=== PATIENT | female | born 1940 | race African-American/Black ===

== ENCOUNTER 2016-08-20 11:07 | Inpatient (IN) ==
[2016-08-20] MEDS ORDERED: MECLIZINE 25 MG TABLET PO STA (12:06)
[2016-08-20] MEDS ORDERED: SODIUM CHLORIDE 0.9% 500 ML IV STA (12:06)
[2016-08-20] MEDS ORDERED: ONDANSETRON 4 MG/2 ML VIAL IV STA (12:06)
--- NOTE | 2016-08-20 12:15 | Emergency Department Note ---
IJennifer Kasabria, am scribing for, and in the presence of, Ye Robison MD 12:09. Enriqueta Headley Charles R, MD, personally performed the services described in this documentation, ascribed by Ken Rodriguez in my presence, and it is both accurate and complete . Arrival - Arrival Chief Complaint: Dizziness ED Nursing Triage Note: pt got dizzy when she woke up friday morning. was seen at [facility] then for that. pt is not any better and went back to [facility]. Mode of Arrival: Stretcher Limitations: No Limitations Source: Patient Time Seen by Provider: 08/20/16 11:55 - History of Present Illness HPI Narrative: This is a 76 y/o black female presenting to the ED with c/o vertigo and near syncopal episode that onset Friday after waking up. Pt was seen at [facility] for her symptoms, since she has not gotten any better and went back to [facility]. Pt was then transferred here for further evaluation. Upon standing, pt states it felt like her muscles would not move so she sat back down because she did not want to pass out. She denies numbness to face, scalp, fever, chills, nausea, vomiting, diarrhea, diplopia, vision change, dysuria, and tingling. She denies chest pain. Her social history is unremarkable. Her PMHx is consistent with HTN, breast cacner, rheumatoid arthritis, and GERD. Consistency: constant Severity: moderate Allergies/Adverse Reactions: Allergies Allergy/AdvReac Type Severity Reaction Status Date / Time meperidine [From Demerol] Allergy Intermediate Dizziness Verified 11/08/14 09:39 Penicillins Allergy Intermediate Dizziness Verified 11/08/14 09:39 Home Medications: Home Medications Medication Instructions Recorded Confirmed Type Atenolol/Chlorthalidone 1 tablet PO DAILY 11/05/14 08/20/16 History [Atenolol-Chlorthalidone 50-25] Atorvastatin [Lipitor] 80 mg PO BEDTIME tablet 11/07/14 08/20/16 Rx Clopidogrel [Plavix] 75 mg PO DAILY tablet 11/07/14 08/20/16 Rx Acetaminophen Tab [Tylenol Tab] 500 mg PO DAILY 08/20/16 08/20/16 History Azelastine HCl [Azelastine 0.1% 1 spray BOTH NARES BID 08/20/16 08/20/16 History Nasal [place]] Baclofen Tab [Lioresal] 5 mg PO BID 08/20/16 08/20/16 History Calcium Carbonate/Vitamin D3 1 each PO BID 08/20/16 08/20/16 History [Calcium 600-Vit D3 800 Tablet] Cholecalciferol (Vitamin D3) 2,000 unit PO BEDTIME 08/20/16 08/20/16 History [Vitamin D3] Fluticasone 50 Mcg Nasal [place] 1 spray BOTH NARES DAILY 08/20/16 08/20/16 History [Flonase Nasal [place]] Folic Acid 0.8 mg PO DAILY 08/20/16 08/20/16 History Garlic Extract [Garlipure] 600 mg PO DAILY 08/20/16 08/20/16 History Gluc/Sarkis-MSM#1/C/Hussein/Ck/Bor 1 each PO DAILY 08/20/16 08/20/16 History [Osteo Bi-Flex Caplet] Meclizine [Antivert] 25 mg PO Q6H PRN 08/20/16 08/20/16 History Ubidecarenone [Co Q-10] 100 mg PO DAILY 08/20/16 08/20/16 History levETIRAcetam TAB [Keppra Tab] 250 mg PO QAM 08/20/16 08/20/16 History levETIRAcetam TAB [Keppra Tab] 500 mg PO BEDTIME 08/20/16 08/20/16 History Review of System - Review of System 12 point system: reviewed and no additional remarkable complaints except as stated - Review of System Constitutional: Present: weakness. Absent: chills, fever Eyes: Absent: vision change Head/Ears/Nose/Throat: Absent: nasal drainage Respiratory: Absent: cough, wheezing Cardiovascular: Absent: chest pain, dyspnea on exertion, syncope (near syncopal ) Gastrointestinal: Absent: abdominal pain, nausea, vomiting, diarrhea, hematochezia Genitourinary female: Absent: dysuria Musculoskeletal: Absent: arm pain, back pain, leg pain, neck pain Skin: Absent: rash Neurological: Present: vertigo. Absent: headache, weakness, confusion Psychiatric: Absent: anxiety Endocrine: Absent: fatigue Hematological/Lymphatic: Absent: easy bleeding Allergic/Immunologic: Absent: facial swelling Medical,Surgical,& Family Hx - Medical History Cardio: History of: Hypertension Rheumatology: History of;: Rheumatoid Arthritis Gastrointestinal: History of: GERD Reproductive: History of: Breast Cancer - Surgical History Reproductive Surgeries: Surgical HX of;: Breast Surgery (Right & Left mastectomy ) - Family History Family History: Reports;: Family Cancer (sisters had breast ca and ovarion, brother prostate, mother colon), Family Diabetes (sister with dm), Family Stroke (sister with cva) Comment Only: Family Hypertension (sisters with htn) - Social History Smoking Status: Never smoker Frequency of Alcohol Use: None Type of Drug Use: None Exam Vital Signs: Vital Signs Temperature 97.2 F L 08/20/16 11:14 Pulse Rate 58 L 08/20/16 11:14 Respiratory Rate 18 08/20/16 11:14 Blood Pressure 170/71 08/20/16 11:14 O2 Sat by Pulse Oximetry 96 08/20/16 11:14 - General General appearance: alert, in no apparent distress, other (near syncopal; weak upon standing ) - Head Head exam: Present: atraumatic, normocephalic, normal inspection - Eye Eye exam: Present: PERRL, EOMI, nystagmus (when standing ) - ENT ENT exam: Present: normal exam, normal oropharynx, mucous membranes moist, TM's normal bilaterally, normal external ear exam - Neck Neck exam: Present: normal inspection, full ROM, trachea midline. Absent: tenderness - Chest Chest inspection: Present: normal inspection, symmetric chest wall rise. Absent : tenderness - Respiratory Respiratory exam: Present: normal lung sounds bilaterally - Cardiovascular Cardiovascular exam: Present: normal rhythm, bradycardia, normal heart sounds. Absent: regular rate - Abdominal Exam Abdominal exam: Present: soft, normal bowel sounds. Absent: distention, tenderness - Extremities Exam Extremities exam: Present: normal inspection, full ROM, normal capillary refill. Absent: tenderness, pedal edema, calf tenderness - Back Exam Back exam: Present: normal inspection, full ROM. Absent: tenderness - Neurological Exam Neurological exam: Present: alert, oriented X3, CN II-XII intact, normal gait, reflexes normal - Psychiatric Psychiatric exam: Present: normal affect, normal mood - Skin Skin exam: Present: warm, dry, intact, normal color. Absent: rash, diaphoresis Course - Consultations Consultation #1: Hospitalist will admit patient Time: 12:10 Results - Labs Lab Results: I have reviewed the patients labs Labs: All results reviewed from previous facility Disposition Clinical Impression: Transient cerebral ischemia, Orthostatic syncope, Bradycardia, Benign paroxysmal positional vertigo, Syncope and collapse Case discussed with: patient Disposition: Still a Patient Condition: Stable Time of Disposition: 12:14
--- NOTE | 2016-08-20 12:32 | EKG Report ---
Stationary ECG Study [facility] ER Test Date: 08/20/2016 12:31:25 PM Pat Name: LISSA HERMAN Department: Room: Gender: F Data Migration Lead: : 1940 Requested by: Ye Liz Order Number: [id number] Reading MD: KAITY PARKINSON Intervals [place] Rate: 58 P: 56 ND: 186 QRS: 93 QRSD: 97 T: 2 QT: 438 QTc: 436 Interpretive Statements SINUS RHYTHM WITH OCCASIONAL VENTRICULAR PREMATURE COMPLEXES NONSPECIFIC T-WAVE ABNORMALITY RIGHT AXIS DEVIATION Electronically Signed On 08-20-16 18:34:26 CDT by KAITY PARKINSON [email or web address]
[2016-08-20] MEDS ORDERED: MECLIZINE 25 MG TABLET ONE (12:42)
[2016-08-20] MEDS ORDERED: ONDANSETRON 4 MG/2 ML VIAL ONE (12:42)
[2016-08-20 13:14] LABS: Basophils % 0.8 % (0.0-0.8); Eosinophils % 1.3 % (0.00-10.9); Hematocrit 34.4 VOL% (35.7-47.0); Hemoglobin 11.2 GM/DL (12.0-16.0); Immature Granulocytes % 0.4 %; Immature Granulocytes Absolute 0.01 #; Lymphocytes # 0.9 10*3/uL (1.4-4.0); Lymphocytes % 37.3 % (21.3-54.2); Mean Corpuscular HGB Conc 32.6 GM/DL (32-36); Mean Corpuscular Hemoglobin 27 PG (27-34); Mean Corpuscular Volume 83.5 FL (87-102); Mean Platelet Volume 10.7 FL (9.6-12.0); Monocytes # 0.2 10*3/uL (0.11-0.8); Monocytes % 6.8 % (1.7-12.7); Neutrophils # 1.3 10*3/uL (1.4-7.4); Neutrophils % 53.4 % (38.7-73.9); Platelet Count 128 T/CUMM (130-400); Red Blood Count 4.12 MC/CUMM (3.8-5.5); Red Cell Distribution Width 13.9 % (9.3-17.3); White Blood Count 2.4 T/CUMM (4-12)
[2016-08-20 13:40] LABS: Albumin 3.9 G/DL (3.4-5.0); Bilirubin,Total 0.6 MG/DL (0.2-1.0); Calcium 9.8 MG/DL (8.5-10.1); Free T4 (Free Thyroxine) 1.17 NG/DL (0.76-1.46); Magnesium 2.1 MG/DL (1.8-2.4); Osmolality,Calculated 290.6 MOS/KG (273-304); Potassium 3.5 MMOL/L (3.5-5.1); Thyroid Stimulating Hormone 0.838 uIU/ml (0.358-3.74); Total Protein 6.5 G/DL (6.4-8.3); Troponin I Only 0.018 NG/ML (0.00-0.045)
[2016-08-20] MEDS ORDERED: ACETAMINOPHEN 325 MG TABLET PO PRN (14:18)
[2016-08-20] MEDS ORDERED: ONDANSETRON 4 MG/2 ML VIAL IV PRN (14:18)
--- NOTE | 2016-08-20 14:26 | Hospitalist History & Physical ---
Assessment and Plan (1) Leukopenia Status: Acute Assessment and plan: WBC 2.4 at admission, this is likely secondary to her rheumatoid arthritis medication regimen. Will will monitor closely. Current Visit: Yes (2) Benign paroxysmal positional vertigo Status: Acute Assessment and plan: We will consult neurology and ENT to evaluate. Current Visit: Yes (3) Bradycardia Status: Acute Assessment and plan: We will review all medications to determine if this may be an attributing factor and consult cardiology to evaluate. Current Visit: Yes History of Present Illness Chief complaint: "dizziness" History of present illness: This is a very pleasant 76 year old female that presented to the ED at [facility] as a lateral transfer from [facility] for evaluation of vertigo and near syncope. The patient has a rather extensive medical history significant for hypertension, rheumatoid arthritis, breast cancer, seizure disorder, cerebral vascular accident. The patient reported the onset of symptoms on yesterday upon awakening. The patient reported "feeling like passing out when standing" and resorted to wearing adult briefs for toileting so that she would not have to stand. She presented to the ED at [facility], where she was evaluated and subsequently released. She reports that her symptoms have failed to improve; which prompted her to return to the ED there this morning. She was evaluated and transferred to [facility] for further evaluation. Labs were obtained at the time of presentation which revealed leukopenia with a white blood cell count at 2.4, sodium at 146, chloride at 108, BUN/creatinine at 19/1.30. Her BNP was noted at 368. Chest radiograph was obtained and was unremarkable. CT Head was absent of acute intracranial process or mass midline shift. After brief discussion with Dr. Robison and Dr. Grier, the patient will admitted to the hospitalist service for continuation of care. Home Medications Medication Instructions Recorded Confirmed Type Atenolol/Chlorthalidone 1 tablet PO DAILY 11/05/14 08/20/16 History [Atenolol-Chlorthalidone 50-25] Atorvastatin [Lipitor] 80 mg PO BEDTIME tablet 11/07/14 08/20/16 Rx Clopidogrel [Plavix] 75 mg PO DAILY tablet 11/07/14 08/20/16 Rx Acetaminophen Tab [Tylenol Tab] 500 mg PO DAILY 08/20/16 08/20/16 History Azelastine HCl [Azelastine 0.1% 1 spray BOTH NARES BID 08/20/16 08/20/16 History Nasal [place]] Baclofen Tab [Lioresal] 5 mg PO BID 08/20/16 08/20/16 History Calcium Carbonate/Vitamin D3 1 each PO BID 08/20/16 08/20/16 History [Calcium 600-Vit D3 800 Tablet] Cholecalciferol (Vitamin D3) 2,000 unit PO BEDTIME 08/20/16 08/20/16 History [Vitamin D3] Fluticasone 50 Mcg Nasal [place] 1 spray BOTH NARES DAILY 08/20/16 08/20/16 History [Flonase Nasal [place]] Folic Acid 0.8 mg PO DAILY 08/20/16 08/20/16 History Garlic Extract [Garlipure] 600 mg PO DAILY 08/20/16 08/20/16 History Gluc/Sarkis-MSM#1/C/Hussein/Ck/Bor 1 each PO DAILY 08/20/16 08/20/16 History [Osteo Bi-Flex Caplet] Meclizine [Antivert] 25 mg PO Q6H PRN 08/20/16 08/20/16 History Ubidecarenone [Co Q-10] 100 mg PO DAILY 08/20/16 08/20/16 History levETIRAcetam TAB [Keppra Tab] 250 mg PO QAM 08/20/16 08/20/16 History levETIRAcetam TAB [Keppra Tab] 500 mg PO BEDTIME 08/20/16 08/20/16 History Allergies Allergy/AdvReac Type Severity Reaction Status Date / Time meperidine [From Demerol] Allergy Intermediate Dizziness Verified 11/08/14 09:39 Penicillins Allergy Intermediate Dizziness Verified 11/08/14 09:39 Medical,Surgical,& Family Hx - Medical History Cardio: History of: Hypertension Neurology: History of: Cerebrovascular Accident (right side weakness) Endocrine: History of: Dyslipidemia Rheumatology: History of;: Rheumatoid Arthritis Gastrointestinal: History of: GERD Reproductive: History of: Breast Cancer - Surgical History Reproductive Surgeries: Surgical HX of;: Breast Surgery (Right & Left mastectomy ) - Family History Family History: Reports;: Family Cancer (sisters had breast ca and ovarion, brother prostate, mother colon), Family Diabetes (sister with dm), Family Stroke (sister with cva) Comment Only: Family Hypertension (sisters with htn) - Social History Smoking Status: Never smoker Frequency of Alcohol Use: None Type of Drug Use: None 12 point system: reviewed and no additional remarkable complaints except as stated Exam - Constitutional General appearance: normal weight, no acute distress - Head Head exam: Present: normal inspection, normocephalic, atraumatic - Eye Eye exam: Present: EOMI. Absent: conjunctival injection, nystagmus Pupils: Present: LAURI, normal accommodation - ENT ENT exam: Present: normal exam, normal external ear exam, normal oropharynx - Neck Neck exam: Present: normal inspection. Absent: lymphadenopathy, meningismus, tenderness, thyromegaly - Respiratory Respiratory exam: Present: clear to auscultation bilaterally. Absent: rales, rhonchi, stridor, wheezes - Cardiovascular Cardiovascular exam: Present: bradycardia. Absent: carotid bruit, diastolic murmur, gallop, JVD, rubs, systolic murmur - GI/Abdominal GI/Abdominal exam: Present: soft - Extremities Exam Extremities exam: Present: normal inspection, normal capillary refill, full ROM. Absent: edema - Back Exam Back exam: Present: normal inspection - Neurological Exam Neurological exam: Present: alert, oriented X3, CN II-XII intact - Psychiatric Psychiatric exam: Present: normal affect, normal mood - Skin Skin exam: Present: normal color, warm, dry Results - Labs CBC & BMP: 08/20/16 12:55 08/20/16 12:55 Lab Results: I have reviewed the past 24 hour labs Quality Measures - VTE Contraindication to Pharmacological VTE Prophylaxis: Thrombocytopenia
--- NOTE | 2016-08-20 14:52 | Ultrasound Report ---
Exam: Carotid ultrasound Date: 08/20/2016 Comparison: 11/06/2014 Technique: Duplex scans of the carotid and vertebral arteries using B-mode/Estrada scale imaging and Doppler spectral analysis and color flow. Reason: Syncope Findings: The right ICA measures 5.4 mm in diameter and the left ICA measures 6.8 mm in diameter. Color-flow documented in the visualized arteries. The peak systolic velocities are as follows: Right CCA: 45.5 cm/s Right ICA: 76.7 cm/s Right ECA: 49.4 cm/s Left CCA: 53.3 cm/s Left ICA: 76.7 cm/s Left ECA: 61.1 cm/s The peak systolic ICA/CCA velocity ratios are as follows: 1.7 on the right and 1.4 on the left. Antegrade flow is present in both vertebral arteries. Impression:[0-15% stenosis in both internal carotid arteries with no significant plaque formation. Antegrade flow in both vertebral arteries.] The Society of Radiologists in Ultrasound consensus conference criteria was used. The Ultrasound images were captured and stored. PROCEDURE INTERPRETED AT [facility] DEPARTMENT OF RADIOLOGY Final Report Signed by: Dr. Pam Becker
[2016-08-20 15:01] LABS: Apearance,Urine CLEAR (Clear); Bilirubin,Urine Negative (Negative); Blood, Urine Negative (Negative); Glucose,Urine (UA) Negative (Negative); Ketones,Urine Negative (Negative); Nitrite,Urine Negative (Negative); Protein,Urine Negative; Urine Color Colorless (Yellow); Urine Specific Gravity 1.004 (1.001-1.035); Urine Urobilinogen < 2.0 EU/DL (0.2-1.0); WBC,Urine 1 /HPF (0-6)
[2016-08-20] MEDS ORDERED: MECLIZINE 25 MG TABLET PO PRN (15:56)
[2016-08-20] MEDS ORDERED: methylPREDNISolone 4 MG TABLET PO SCH (16:00)
[2016-08-20] MEDS ORDERED: DEXAMETHASONE 4 MG/1 ML VIAL MISC INJ ONE (17:00)
[2016-08-20] MEDS ORDERED: LIDOCAINE 2%/EPI 20 ML VIAL MISC INJ ONE (17:00)
--- NOTE | 2016-08-20 17:18 | Consultation ---
Assessment and Plan - Time spent with patient Time spent with patient: Greater than 30 minutes (1) Otalgia, left ear Status: Acute Assessment and plan: I feel her ear pain fullness and variety of neurologic pain of the left ear is secondary to jaw joint pathology her otologic exam is grossly normal. I recommend a temporomandibular joint injection that would be both diagnostic and therapeutic. She agrees to this and it was performed at bedside with a total of 4 cc of 1% lidocaine with 1-100,000 epinephrine and 1 cc of 4 mg of Decadron. She tolerated the procedure well. I will follow up with this patient will see if we obtain the desired benefit from the injection. Thank you very much for this consult I will follow-up on this patient. Current Visit: Yes (2) Disorder of left temporomandibular joint Status: Acute Current Visit: Yes History of Present Illness - Data of Consult Patient: new to practice Consult date: 08/20/16 - Consult Narrative Reason for consult: Left otalgia History of present illness: Ms. Crow is a 76 year old female exquisite left otalgia with fullness and irritation ENT is consulted to evaluate and treat. This is been going on for several weeks and has increased in severity and frequency the pain is sharp with a constant dull ache during exacerbations she rates it at a 10 out of 10 constant 5-7 out of 10. CC: Yulia Grier MD - Home Medications and Allergies Home Medications: Home Medications Medication Instructions Recorded Confirmed Type Atenolol/Chlorthalidone 1 tablet PO DAILY 11/05/14 08/20/16 History [Atenolol-Chlorthalidone 50-25] Atorvastatin [Lipitor] 80 mg PO BEDTIME tablet 11/07/14 08/20/16 Rx Clopidogrel [Plavix] 75 mg PO DAILY tablet 11/07/14 08/20/16 Rx Acetaminophen Tab [Tylenol Tab] 500 mg PO DAILY 08/20/16 08/20/16 History Azelastine HCl [Azelastine 0.1% 1 spray BOTH NARES BID 08/20/16 08/20/16 History Nasal [place]] Baclofen Tab [Lioresal] 5 mg PO BID 08/20/16 08/20/16 History Calcium Carbonate/Vitamin D3 1 each PO BID 08/20/16 08/20/16 History [Calcium 600-Vit D3 800 Tablet] Cholecalciferol (Vitamin D3) 2,000 unit PO BEDTIME 08/20/16 08/20/16 History [Vitamin D3] Fluticasone 50 Mcg Nasal [place] 1 spray BOTH NARES DAILY 08/20/16 08/20/16 History [Flonase Nasal [place]] Folic Acid 800 mcg PO DAILY 08/20/16 08/20/16 History Garlic Extract [Garlipure] 600 mg PO DAILY 08/20/16 08/20/16 History Gluc/Sarkis-MSM#1/C/Hussein/Ck/Bor 2 each PO DAILY 08/20/16 08/20/16 History [Osteo Bi-Flex Caplet] Meclizine [Antivert] 25 mg PO Q6H PRN 08/20/16 08/20/16 History Ubidecarenone [Co Q-10] 100 mg PO DAILY 08/20/16 08/20/16 History levETIRAcetam TAB [Keppra Tab] 500 mg PO BID 08/20/16 08/20/16 History Allergies/Adverse Reactions: Allergies Allergy/AdvReac Type Severity Reaction Status Date / Time meperidine [From Demerol] Allergy Intermediate Dizziness Verified 11/08/14 09:39 Penicillins Allergy Intermediate Dizziness Verified 11/08/14 09:39 12 point system: reviewed and no additional remarkable complaints except as stated Medical,Surgical,& Family Hx - Medical History Cardio: History of: Hypertension Neurology: History of: Cerebrovascular Accident (right side weakness) Endocrine: History of: Dyslipidemia Rheumatology: History of;: Rheumatoid Arthritis Renal: History of: Renal Problems (incontinent post stroke) Genitourinary: History of: Recurring Urinary Tract Infections Gastrointestinal: History of: GERD Reproductive: History of: Breast Cancer - Surgical History Reproductive Surgeries: Surgical HX of;: Breast Surgery (Right & Left mastectomy ) - Family History Family History: Reports;: Family Cancer (sisters had breast ca and ovarion, brother prostate, mother colon), Family Diabetes (sister with dm), Family Stroke (sister with cva) Comment Only: Family Hypertension (sisters with htn) - Social History Smoking Status: Never smoker Frequency of Alcohol Use: None Type of Drug Use: None Exam - Constitutional Vitals: Period Temp Pulse Resp BP Sys/Dixon Pulse Ox Last 24 Hr 97.7 F 46-61 18-18 154-175/65-75 100-100 General appearance: normal weight, no acute distress - Head Head exam: Present: normal inspection, normocephalic - Eye Eye exam: Present: EOMI Pupils: Present: LAURI - ENT ENT exam: Present: normal exam, normal external ear exam, normal oropharynx, other (Left TMJ tenderness clicking and popping with no locking on exam consistent with TMJ pain) - Expanded ENT Exam Ear exam: Present: TM's normal bilaterally Mouth exam: Present: normal external inspection, moist Teeth exam: Present: other (No TMJ exam above) Throat exam: Present: normal inspection - Neck Neck exam: Present: normal inspection - Respiratory Respiratory exam: Present: other (No shortness of breath or tachypnea) - GI/Abdominal GI/Abdominal exam: Present: soft (No gross organomegaly) - Extremities Exam Extremities exam: Present: normal inspection, normal capillary refill - Neurological Exam Neurological exam: Present: alert, oriented X3, CN II-XII intact - Psychiatric Psychiatric exam: Present: normal affect, normal mood - Skin Skin exam: Present: normal color, warm Results - Labs CBC & BMP: 08/20/16 12:55 08/20/16 12:55 Lab Results: I have reviewed the past 24 hour labs Quality Measures - VTE Contraindication to Pharmacological VTE Prophylaxis: Thrombocytopenia
[2016-08-20] MEDS: methylPREDNISolone 4 MG TABLET PO SCH ×2 (18:56→21:32)
[2016-08-20] MEDS: CHOLECALCIFEROL 1,000 UNIT TABLET PO SCH (21:32)
[2016-08-20] MEDS: CALCIUM (CARBONATE)/VITAMIN D 600 MG-400 UNIT TABLET PO SCH (21:33)
[2016-08-20] MEDS: ATORVASTATIN 80 MG TABLET PO SCH (21:33)
[2016-08-20] MEDS: AZELASTINE NASAL 137 MCG/SPRAY 30 ML BOTTLE BOTH NARES SCH (21:33)
[2016-08-20] MEDS: levETIRAcetam 500 MG TABLET PO SCH (21:33)
[2016-08-21 06:02] LABS: Hematocrit 34.8 VOL% (35.7-47.0); Hemoglobin 11.7 GM/DL (12.0-16.0); Immature Granulocytes % 0.3 %; Immature Granulocytes Absolute 0.01 #; Lymphocytes # 0.7 10*3/uL (1.4-4.0); Lymphocytes % 20.3 % (21.3-54.2); Mean Corpuscular HGB Conc 33.6 GM/DL (32-36); Mean Corpuscular Hemoglobin 28 PG (27-34); Mean Corpuscular Volume 82.9 FL (87-102); Mean Platelet Volume 10.7 FL (9.6-12.0); Monocytes # 0.1 10*3/uL (0.11-0.8); Monocytes % 2.5 % (1.7-12.7); Neutrophils # 2.5 10*3/uL (1.4-7.4); Neutrophils % 76.9 % (38.7-73.9); Platelet Count 126 T/CUMM (130-400); Red Cell Distribution Width 13.7 % (9.3-17.3); White Blood Count 3.2 T/CUMM (4-12)
[2016-08-21 06:35] LABS: Calcium 9.7 MG/DL (8.5-10.1); Osmolality,Calculated 293.6 MOS/KG (273-304); Potassium 3.9 MMOL/L (3.5-5.1)
[2016-08-21] MEDS ORDERED: GARLIC EXTRACT PO SCH (09:00)
[2016-08-21] MEDS: AZELASTINE NASAL 137 MCG/SPRAY 30 ML BOTTLE BOTH NARES SCH ×2 (09:59→21:35)
[2016-08-21] MEDS: CALCIUM (CARBONATE)/VITAMIN D 600 MG-400 UNIT TABLET PO SCH ×2 (10:00→21:32)
[2016-08-21] MEDS: COENZYME Q10 100 MG CAPSULE PO SCH (10:00)
[2016-08-21] MEDS: PANTOPRAZOLE 40 MG TABLET PO SCH (10:00)
[2016-08-21] MEDS: CLOPIDOGREL 75 MG TABLET PO SCH (10:00)
[2016-08-21] MEDS: FOLIC ACID 0.4 MG TABLET PO SCH (10:00)
[2016-08-21] MEDS: ACETAMINOPHEN 500 MG TABLET PO SCH (10:00)
[2016-08-21] MEDS: FLUTICASONE 50 MCG NASAL SPRAY 16 GM BOTTLE BOTH NARES SCH (10:00)
[2016-08-21] MEDS: GLUCOSAMINE 500 MG TABLET PO SCH (10:04)
[2016-08-21] MEDS: levETIRAcetam 250 MG TABLET PO SCH (10:04)
[2016-08-21] MEDS: methylPREDNISolone 4 MG TABLET PO SCH ×4 (10:04→21:32)
--- NOTE | 2016-08-21 15:16 | Hospitalist Progress Note ---
Assessment and Plan (1) Vertigo Status: Acute Assessment and plan: 1)vertigo- started after her seizure, improved with PT maneuvers. refer to TMR. she was not orthostatic on checks here. 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 Dr Prater to see. on Plavix, lipitor. BP ok, antiHTN meds held for now. 3)left ear pain/ear pounding- resolved after injection of TMJ but reports sound is muffled, still stuffy on that side of her head. 4)dispo- refer to TMR Current Visit: Yes (2) Disorder of left temporomandibular joint Status: Acute Current Visit: Yes Hospitalist: Subjective Interval history: Mrs Crow is feeling better today. She says the left ear pain is improved after injection yesterday. Also she has been up with help and her vertigo is better. She is able to sit up for meals and walk to bathroom today. She is on medrol dose pack. She is interested in going to [facility] because she has been unsteady on her feet and had stroke November of 2014. She was not orthostatic. Exam - Constitutional Vitals: Period Temp Pulse Resp BP Sys/Dixon Pulse Ox Last 24 Hr 96.3 F-98.2 F 42-61 16-18 108-178/50-75 92-100 General appearance: normal weight, no acute distress - Eye Eye exam: Present: EOMI. Absent: scleral icterus - Expanded ENT Exam Mouth exam: Present: normal external inspection, moist Teeth exam: Present: other (No TMJ exam above) Throat exam: Present: normal inspection - Respiratory Respiratory exam: Present: clear to auscultation bilaterally - Cardiovascular Cardiovascular exam: Present: regular rate and rhythm - GI/Abdominal GI/Abdominal exam: Present: normal bowel sounds, soft. Absent: tenderness - Extremities Exam Extremities exam: Absent: edema - Neurological Exam Neurological exam: Present: alert, oriented X3, CN II-XII intact, motor sensory deficit (right side weakness) - Skin Skin exam: Present: warm, dry Results - Labs CBC & BMP: 08/21/16 05:41 08/21/16 05:41 Quality Measures - VTE Contraindication to Pharmacological VTE Prophylaxis: Thrombocytopenia
--- NOTE | 2016-08-21 17:06 | Neurology Consult Note ---
History of Present Illness History of present illness: She had a history of stroke in november 2014, then seizure in june 2016.She was started on new medicine which she tolerated ok, dose decreased about 6 weeks ago. 2 weeks ago she started having ear pain, tinnitus, and congestion in her left sinus, but not the right. Since that time those symptoms have persisted though Dr Fontaine added a nasal steroid. Then yesterday morning she woke up fine, was in the kitchen gettign juice to take her potassium with when suddenly the room was spinning around her. She had to sit down and call her sister. She was diagnosed with vertigo in outside ER and has taken meclizine twice without much improvement. This morning she was able to get up and get ready for the day, but the more she did the more dizzy she got. She also saw spots inaddition to the room spinning. She again had to sit down. In outside ER she had bradycardia (in the 40s by verbal report) and orthostatic blood pressure. Here she wasn't able to stand to have her blood pressure cehcked. She was transferred here for further evaluation. Dr. Baxter gave her an injection in the left ear which has helped her significantly. She is quite weak overall good. Required mod assist to walk Home Medications Medication Instructions Recorded Confirmed Type Atenolol/Chlorthalidone 1 tablet PO DAILY 11/05/14 08/20/16 History [Atenolol-Chlorthalidone 50-25] Atorvastatin [Lipitor] 80 mg PO BEDTIME tablet 11/07/14 08/20/16 Rx Clopidogrel [Plavix] 75 mg PO DAILY tablet 11/07/14 08/20/16 Rx Acetaminophen Tab [Tylenol Tab] 500 mg PO DAILY 08/20/16 08/20/16 History Azelastine HCl [Azelastine 0.1% 1 spray BOTH NARES BID 08/20/16 08/20/16 History Nasal [place]] Baclofen Tab [Lioresal] 5 mg PO BID 08/20/16 08/20/16 History Calcium Carbonate/Vitamin D3 1 each PO BID 08/20/16 08/20/16 History [Calcium 600-Vit D3 800 Tablet] Cholecalciferol (Vitamin D3) 2,000 unit PO BEDTIME 08/20/16 08/20/16 History [Vitamin D3] Fluticasone 50 Mcg Nasal [place] 1 spray BOTH NARES DAILY 08/20/16 08/20/16 History [Flonase Nasal [place]] Folic Acid 800 mcg PO DAILY 08/20/16 08/20/16 History Garlic Extract [Garlipure] 600 mg PO DAILY 08/20/16 08/20/16 History Gluc/Sarkis-MSM#1/C/Hussein/Ck/Bor 2 each PO DAILY 08/20/16 08/20/16 History [Osteo Bi-Flex Caplet] Meclizine [Antivert] 25 mg PO Q6H PRN 08/20/16 08/20/16 History Ubidecarenone [Co Q-10] 100 mg PO DAILY 08/20/16 08/20/16 History levETIRAcetam TAB [Keppra Tab] 500 mg PO BID 08/20/16 08/20/16 History Allergies Allergy/AdvReac Type Severity Reaction Status Date / Time meperidine [From Demerol] Allergy Intermediate Dizziness Verified 11/08/14 09:39 Penicillins Allergy Intermediate Dizziness Verified 11/08/14 09:39 12 point system: reviewed and no additional remarkable complaints except as stated Medical,Surgical,& Family Hx - Medical History Cardio: History of: Hypertension Neurology: History of: Cerebrovascular Accident (right side weakness) Endocrine: History of: Dyslipidemia Rheumatology: History of;: Rheumatoid Arthritis Renal: History of: Renal Problems (incontinent post stroke) Genitourinary: History of: Recurring Urinary Tract Infections Gastrointestinal: History of: GERD Reproductive: History of: Breast Cancer - Surgical History Reproductive Surgeries: Surgical HX of;: Breast Surgery (Right & Left mastectomy ) - Family History Family History: Reports;: Family Cancer (sisters had breast ca and ovarion, brother prostate, mother colon), Family Diabetes (sister with dm), Family Stroke (sister with cva) Comment Only: Family Hypertension (sisters with htn) - Social History Smoking Status: Never smoker Frequency of Alcohol Use: None Type of Drug Use: None Exam - Constitutional Vitals: Period Temp Pulse Resp BP Sys/Dixon Pulse Ox Last 24 Hr 96.3 F-98.2 F 42-49 16-18 108-131/50-60 92-96 Exam: GENERAL: Patient is in no acute distress. NECK: Neck is supple. There is no JVD. No carotid bruits present. No thyroid masses. CVS: First and second heart sounds are normal. There is no S3 present. Regular rate and rhythm. RESPIRATORY: Lungs are clear to auscultation without any rales or rhonchi. ABDOMEN: Soft and non-tender. Bowel sounds are present. There is no hepatosplenomegaly. EXT: There is no palpable edema. Peripheral pulses are present. Skin: No rashes Central Nervous system: General: Alert, awake and Oriented x 3 Speech: Fluent Comprehension: Intact and normal Facial expressions: Normal Cranial Nerves: CN1/Olfactory: Normal CN II/ Optic: Normal, Visual Rodriguez unreliable CN III, and : LAURI & EOMI CN V: Normal & intact CN VII: face is symmetric CNVIII: Normal CN XI/X/XI/XII: Intact and Normal Motor: Bulk and Tone is normal. Strength in the right 3-4/5 Strength in the left 3-4/5 Sensory: Grossly intact for all the modalities of PP, LT and temp sense Reflexes: 1+ and symmetrical Cerebellar function: Normal finger to nose and heel to nunez testing. Toes: Equivocal Gait: Not tested at this Results - Labs CBC & BMP: 08/21/16 05:41 08/21/16 05:41 Assessment and Plan (1) Otalgia, left ear Status: Acute Assessment and plan: Agree with current ENT evaluation and management. Current Visit: Yes (2) History of CVA (cerebrovascular accident) Status: Acute Assessment and plan: Continue Plavix a day Agree with rehab/swing bed placement if insurance allows. Current Visit: Yes (3) History of seizure Status: Acute Assessment and plan: Continue Keppra for now Thank you for the consult Current Visit: Yes
--- NOTE | 2016-08-21 17:59 | ECHO Report ---
Rosalinda Crow Exam Date: 08/21/2016 09:33 Referring Physician: Technologist: Anne Marie Souza Age: 76 Ht (in): 66 Wt (lb): 174 Gender: F Exam Location: [facility] Echo Indications: BP: 108 / 51 HR: 58 Rhythm: Sinus Technical Quality: Fair IMPRESSIONS Mildly increased left ventricular cavity size. Mild left ventricular hypertrophy. Left ventricular ejection fraction is estimated at 55 %. The right ventricle is normal in size and function. Moderately increased right atrial size. Moderately increased left atrial size. Mild mitral annular calcification. Morphologically normal mitral valve. Mild-moderate mitral valve regurgitation. Morphologically normal aortic valve without significant sclerosis or stenosis. There is no aortic regurgitation. Morphologically normal tricuspid valve. Trace to mild tricuspid valve regurgitation. Tricuspid regurgitation velocities suggest a PAP of 52 mmHg. Morphologically normal pulmonic valve without significant stenosis. There is no pulmonic regurgitation. Normal pericardium without effusion. Normal ascending aorta dimension. MEASUREMENTS (Male / Female) Normal Values 2D ECHO LV Diastolic Diameter PLAX 5.9 cm 4.2 - 5.9 / 3.9 - 5.3 cm LV Systolic Diameter PLAX 4.7 cm LV Fractional Shortening PLAX 20.1 % IVS Diastolic Thickness 1.1 cm 0.6 - 1.0 / 0.6 - 0.9 cm LVPW Diastolic Thickness 1.1 cm 0.6 - 1.0 / 0.6 - 0.9 cm RV Internal Dim ED PLAX 3.4 cm Aortic Root Diameter 3.1 cm LA Systolic Diameter LX 4.4 cm 3.0 - 4.0 / 2.7 - 3.8 cm DOPPLER TR Peak Velocity 324.0 cm/s TR Peak Gradient 42.0 mmHg FINDINGS Left Ventricle Mildly increased left ventricular cavity size. Mild left ventricular hypertrophy. Left ventricular ejection fraction is estimated at 55 %. Right Ventricle The right ventricle is normal in size and function. Right Atrium Moderately increased right atrial size. Left Atrium Moderately increased left atrial size. Mitral Valve Mild mitral annular calcification. Morphologically normal mitral valve. Mild-moderate mitral valve regurgitation. Aortic Valve Morphologically normal aortic valve without significant sclerosis or stenosis. There is no aortic regurgitation. Tricuspid Valve Morphologically normal tricuspid valve. Trace to mild tricuspid valve regurgitation. Tricuspid regurgitation velocities suggest a PAP of 52 mmHg. Pulmonic Valve Morphologically normal pulmonic valve without significant stenosis. There is no pulmonic regurgitation. Pericardium Normal pericardium without effusion. Aorta Normal ascending aorta dimension. Jb Zhou MD (Electronically Signed) Final Date: 21 Aug 2016 17:58
[2016-08-21] MEDS: ATORVASTATIN 80 MG TABLET PO SCH (21:32)
[2016-08-21] MEDS: CHOLECALCIFEROL 1,000 UNIT TABLET PO SCH (21:32)
[2016-08-21] MEDS: levETIRAcetam 500 MG TABLET PO SCH (21:33)
--- NOTE | 2016-08-22 08:53 | Hospitalist Progress Note ---
Assessment and Plan - Time spent with patient Time spent with patient: Less than 30 minutes (1) Otalgia, left ear Status: Acute Assessment and plan: 76-year-old -[place] female with history of CVA and seizures admitted by hospitalist 08/20/2016 with vertigo. [facility] rehab has denied patient due to her insurance. 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 If no swing bed will take her she may need to go home and continue her home health PT. Dr. Grier will see and examine patient and further recommendations to follow Vertigo--this is improved with PT maneuvers and temporomandibular injection by Dr. Baxter Old stroke--no signs of new stroke. Dr. Prater has seen and examined patient he wants to continue Plavix, Lipitor, and Keppra. No new changes at this time. Left ear pain/ear pounding--this is improved mildly from TMJ injection but she states it still feels clogged up and stuffy. She is on Medrol Dosepak, Antivert , and Flonase. Bradycardia--her hypertensive medications are being held at this time. Her current heart rate is 51. Blood pressure 142/77 Current Visit: Yes (2) Disorder of left temporomandibular joint Status: Acute Current Visit: Yes (3) Vertigo Status: Acute Current Visit: Yes (4) History of CVA (cerebrovascular accident) Status: Acute Current Visit: Yes (5) History of seizure Status: Acute Current Visit: Yes (6) Thrombocytopenia Status: Acute Current Visit: Yes (7) Leukopenia Status: Acute Current Visit: Yes Hospitalist: Subjective Interval history: Patient states she feels better than when she came in. She said the injection Dr. Baxter did made her jaw and cheek feel better but she still has some pain in her inner ear along with a clogged up feeling. She states she feels that this clogged up feeling is what makes her dizzy. She states she does have home health physical therapy at home. Otherwise she has no complaints. She is eating and drinking well and having normal bowel movements. Exam - Constitutional Vitals: Period Temp Pulse Resp BP Sys/Dixon Pulse Ox Last 24 Hr 97.0 F-98.1 F 45-56 16-18 108-143/51-77 94-96 Exam: 76-year-old -[place] female, no acute distress Chest clear CV regular rate and rhythm Abdomen soft and nontender Extremities with no edema - Expanded ENT Exam Mouth exam: Present: normal external inspection, moist Teeth exam: Present: other (No TMJ exam above) Throat exam: Present: normal inspection Results - Labs CBC & BMP: 08/21/16 05:41 08/21/16 05:41 Lab Results: I have reviewed the past 24 hour labs Quality Measures - VTE Contraindication to Pharmacological VTE Prophylaxis: Thrombocytopenia
[2016-08-22] MEDS: PANTOPRAZOLE 40 MG TABLET PO SCH (09:00)
[2016-08-22] MEDS: CALCIUM (CARBONATE)/VITAMIN D 600 MG-400 UNIT TABLET PO SCH (09:00)
[2016-08-22] MEDS: FOLIC ACID 0.4 MG TABLET PO SCH (09:00)
[2016-08-22] MEDS: ACETAMINOPHEN 500 MG TABLET PO SCH (09:00)
[2016-08-22] MEDS: CLOPIDOGREL 75 MG TABLET PO SCH (09:00)
[2016-08-22] MEDS: levETIRAcetam 250 MG TABLET PO SCH (09:00)
[2016-08-22] MEDS: COENZYME Q10 100 MG CAPSULE PO SCH (09:00)
[2016-08-22] MEDS: methylPREDNISolone 4 MG TABLET PO SCH ×2 (09:00→14:09)
[2016-08-22] MEDS: AZELASTINE NASAL 137 MCG/SPRAY 30 ML BOTTLE BOTH NARES SCH (09:01)
[2016-08-22] MEDS: FLUTICASONE 50 MCG NASAL SPRAY 16 GM BOTTLE BOTH NARES SCH (09:01)
[2016-08-22] MEDS: GLUCOSAMINE 500 MG TABLET PO SCH (09:09)
[2016-08-22 11:35] VITALS: BP 128/60
--- NOTE | 2016-08-22 13:49 | Discharge Summary ---
Hospital Course - Hospital Course Hospital Course: Ms. Crow is a 76-year-old -[place] female with history of hypertension , CVA, and seizures admitted by hospital medicine with vertigo. Dr. Baxter from ENT did see the patient and he did some maneuvers and gave her a TMJ injection. This did seem to help patient tremendously. She is still continuing to have some ear pain and pounding with clogging that should improve with time. She is on a Medrol Dosepak, Antivert, and Flonase for this. Dr. Prater was consulted as her neurologist as well. He still no signs of a stroke wanted her to continue on her Plavix, Lipitor, and Keppra. Patient was denied rehab and swing bed due to her insurance so she will be discharged to home with home health physical therapy and Occupational Therapy. Her blood pressures are controlled but she is still somewhat bradycardic so we will continue to hold her blood pressure medicines for now. Patient will follow up with Dr. Baxter in 1 week for hearing tests etc. Patient can see Dr. Prater as previously scheduled. Patient will need to follow-up with her primary care physician in the next week or 2 for blood pressure monitoring. Patient's case was discussed with Dr. Grier, Dr. Baxter, case hardener, patient and nursing. Case coordination, chart review, and discharge paperwork took approximately 42 minutes. - Time spent with patient Time with patient DS: Greater than 30 minutes Diagnosis - Discharge Diagnosis (1) Otalgia, left ear Status: Acute (2) Disorder of left temporomandibular joint Status: Resolved (3) Vertigo Status: Acute (4) History of CVA (cerebrovascular accident) Status: Chronic (5) History of seizure Status: Chronic (6) Thrombocytopenia Status: Chronic (7) Leukopenia Status: Chronic Discharge Plan - Discharge Data Disposition: Home Health Service Condition at Discharge: Stable Discharge Diet: advance to your usual diet Activity: as per physical therapy Hygiene: may shower Driving: not until seen by doctor Contact your physician if you experience:: pain uncontrolled by pain medications - Discharge Medications New methylPREDNISolone DOSEPAK [Medrol Dosepak] 4 mg PO DIRECTED #1 pack Continue Atorvastatin [Lipitor] 80 mg PO BEDTIME tablet Clopidogrel [Plavix] 75 mg PO DAILY tablet Azelastine HCl [Azelastine 0.1% Nasal [place]] 1 spray BOTH NARES BID Acetaminophen Tab [Tylenol Tab] 500 mg PO DAILY Gluc/Sarkis-MSM#1/C/Hussein/Ck/Bor [Osteo Bi-Flex Caplet] 2 each PO DAILY Cholecalciferol (Vitamin D3) [Vitamin D3] 2,000 unit PO BEDTIME Calcium Carbonate/Vitamin D3 [Calcium 600-Vit D3 800 Tablet] 1 each PO BID levETIRAcetam TAB [Keppra Tab] 500 mg PO BID Ubidecarenone [Co Q-10] 100 mg PO DAILY Folic Acid 800 mcg PO DAILY Garlic Extract [Garlipure] 600 mg PO DAILY Fluticasone 50 Mcg Nasal [place] [Flonase Nasal [place]] 1 spray BOTH NARES DAILY Meclizine [Antivert] 25 mg PO Q6H PRN PRN Reason: Dizziness Baclofen Tab [Lioresal] 5 mg PO BID Discontinued Atenolol/Chlorthalidone [Atenolol-Chlorthalidone 50-25] 1 tablet PO DAILY - Follow Up or Referral Follow Up: Rafael Baxter DO [Physician] - 1 Week Mandeep Prater MD [Physician] - (make sure she has an appt) PCP, doctor [Other] - 1 Week (BP meds held for bradycardia, follow up) - Forms/Instructions Additional Discharge Instructions: home health for PT and OT and nursing Exam - Constitutional Vitals: Period Temp Pulse Resp BP Sys/Dixon Pulse Ox Last 24 Hr 97.0 F-98.1 F 47-56 16-18 112-146/58-77 94-97 Exam: 76-year-old -[place] female, no acute distress, alert and oriented Chest clear CV regular rate and rhythm Abdomen soft and nontender Extremities with no edema DS: Provider Date of admission: 08/20/16 12:37 Primary care physician: Preston Fontaine DO Attending physician on admission: Yulia Grier MD Consults: 08/20/16 14:18 Consult to Physician [CONS] Routine Comment: near syncope Consulting Provider: Mandeep Prater Consult to Specialist Group: Neurology Consult Notification Comment: LEFT MESSAGE WITH OFFICE OF CONSULT AT 1520 08/20/16 15:46 Consult to Physician [CONS] Routine Comment: vertigo, left ear pain Consulting Provider: Rafael Baxter 08/20/16 17:26 Consult to Physical Therapy [CONS] Routine Reason for Physical Therapy: Evaluate and Treat Consult Comment: Rosalinda patel for Balance evaluation and treatment. 08/22/16 08:14 Consult to Case Mgmt/Social Srvs [CONS] Routine Reason for Case Mgmt/Social Srvs: Rehab Swingbed/SNF/[facility] Discharging clinician: AISHA Barr Expected date of discharge: 08/22/16
--- NOTE | 2016-08-23 00:03 | Progress Note ---
INTERVAL HISTORY: Ms. Crow seems to be doing very well. No new problems reported. Dizziness is much better. PHYSICAL EXAMINATION: CHEST: Clear. HEART: Regular rate and rhythm. ABDOMEN: Soft and nontender. NEUROLOGIC: She is alert, awake, and oriented. Cranial nerves II through XII intact. Motor exam: Strength is symmetric. She is able to get up and walk. IMPRESSION: 1. REMOTE HISTORY OF CVA. Continue Plavix today. 2. HISTORY SEIZURES. Continue Keppra. 3. Okay to go home from the neurologic standpoint 4. Followup in four to six weeks.
--- NOTE | 2016-08-28 07:54 | Physician Query Form ---
CLICK EDIT DOCUMENT TO SELECT QUERY ANSWER --> OK --> SIGN Lupe Prieto RN Clinical Chemist [employer] W) [phone] (f) [phone] [email or web address] PROVIDERS: Make your selection(s) from the choices in EACH section by typing an "x" and enter comments in the comment section. Please use your independent medical judgment in providing your response. This request does not imply that any particular answer is desired or expected. CLINICAL INDICATORS: (Providers should not edit this section) Based on documentation of "Complains of vertigo and near syncope" "Acute benign paroxysmal positional vertigo" "Acute bradycardia" "Acute left ear otalgia" Heart rate documented from 61 to 42. Based on the above, could you clarify the appropriate diagnosis, if significant , that supports the above abnormalities and additional evaluation, monitoring, and/or treatment rendered: (x ) Vertigo due to Otalgia ( ) Vertigo due to Bradycardia ( ) Other, please specify: ( ) Clinically unable to determine COMMENTS: PLEASE ALSO DOCUMENT RESPONSE IN PROGRESS NOTES AND/OR DISCHARGE SUMMARY Use of terms such as suspected, likely, or probable (associated with a specific diagnosis that is being evaluated, monitored, or treated as if it exists) are acceptable and can be restated in the discharge summary if not ruled out. MTDD
== END 2016-08-22 16:11 | disposition home health service (06) | DRG 149 ==
LOC: EDUNIT# → N.ED 11:07 → N.EDINP 12:37 → N.TELEN 15:11
PROVIDERS: ADMIT Internal Medicine; ATTEND Internal Medicine

== ENCOUNTER 2017-09-17 17:53 | Inpatient (IN) ==
[2017-09-17] MEDS ORDERED: ONDANSETRON 4 MG/2 ML VIAL IV STA (19:38)
[2017-09-17] MEDS ORDERED: ASPIRIN 325 MG TABLET PO STA (19:38)
[2017-09-17 20:41] LABS: Hematocrit 36.1 VOL% (35.7-47.0); Hemoglobin 12.3 GM/DL (12.0-16.0); Mean Corpuscular HGB Conc 34.1 GM/DL (32-36); Mean Corpuscular Hemoglobin 29 PG (27-34); Mean Corpuscular Volume 84.5 FL (87-102); Red Blood Count 4.27 MC/CUMM (3.8-5.5); White Blood Count 3.5 T/CUMM (4-12)
[2017-09-17 20:42] LABS: Basophils % 0.3 % (0.0-0.8); Eosinophils % 0.9 % (0.00-10.9); Lymphocytes # 0.8 10*3/uL (1.4-4.0); Lymphocytes % 23.2 % (21.3-54.2); Mean Platelet Volume 10.5 FL (9.6-12.0); Monocytes # 0.3 10*3/uL (0.11-0.8); Monocytes % 7.5 % (1.7-12.7); Neutrophils # 2.4 10*3/uL (1.4-7.4); Neutrophils % 68.1 % (38.7-73.9); Platelet Count 126 T/CUMM (130-400); Red Cell Distribution Width 13.9 % (9.3-17.3)
[2017-09-17 20:45] LABS: Apearance,Urine CLEAR (Clear); Bacteria,Urine Occasional /HPF (Few); Bilirubin,Urine Negative (Negative); Blood, Urine Negative (Negative); Glucose,Urine (UA) Negative (Negative); Ketones,Urine Negative (Negative); Nitrite,Urine Negative (Negative); Protein,Urine 30 MG/DL; RBC,Urine <1 /HPF (0-4); Urine Color Straw (Yellow); Urine Specific Gravity 1.009 (1.001-1.035); Urine Urobilinogen < 2.0 EU/DL (0.2-1.0); WBC,Urine 3 /HPF (0-6)
[2017-09-17 20:51] LABS: Barbiturates Screen,Urine Negative (Negative); Benzodiazepines Screen,Urine Negative (Negative); Cannabinoid Screen,Urine Negative (Negative); Opiate Screen,Urine Negative (Negative); Phencyclidine Screen,Urine Negative (Negative)
[2017-09-17 20:56] LABS: Partial Thromboplastin Time 43.4 SECS (0-40)
[2017-09-17 21:04] LABS: Alanine Aminotransferase 37 U/L (13-56); Alkaline Phosphatase 76 U/L (45-117); Aspartate Amino Transferase 23 U/L (0-37); Blood Urea Nitrogen 23 MG/DL (7-18); Calcium 9.3 MG/DL (8.5-10.1); Glucose 118 MG/DL (74-106); Sodium 145 MMOL/L (136-145); Total Protein 6.8 G/DL (6.4-8.3)
[2017-09-17 21:05] LABS: Osmolality,Calculated 292.7 MOS/KG (273-304)
[2017-09-18 08:10] LABS: Eosinophils % 1.2 % (0.00-10.9); Hematocrit 33.1 VOL% (35.7-47.0); Hemoglobin 10.8 GM/DL (12.0-16.0); Lymphocytes % 31.9 % (21.3-54.2); Mean Corpuscular HGB Conc 32.6 GM/DL (32-36); Mean Corpuscular Hemoglobin 28 PG (27-34); Mean Corpuscular Volume 86.4 FL (87-102); Mean Platelet Volume 10.9 FL (9.6-12.0); Monocytes % 9.1 % (1.7-12.7); Neutrophils % 57.4 % (38.7-73.9); Platelet Count 119 T/CUMM (130-400); Red Blood Count 3.83 MC/CUMM (3.8-5.5); Red Cell Distribution Width 14.1 % (9.3-17.3); White Blood Count 2.5 T/CUMM (4-12)
[2017-09-18 08:11] LABS: Basophils % 0.4 % (0.0-0.8); Lymphocytes # 0.8 10*3/uL (1.4-4.0); Monocytes # 0.2 10*3/uL (0.11-0.8); Neutrophils # 1.5 10*3/uL (1.4-7.4)
[2017-09-18 08:19] LABS: Risk Ratio 2.68; VLDL CHOLESTEROL 10.8 MG/DL
[2017-09-18 08:20] LABS: Albumin 3.5 G/DL (3.4-5.0); Bilirubin,Direct 0.12 MG/DL (0.0-0.20); Bilirubin,Indirect 0.9 MG/DL (0.0-1.0); Total Protein 6.5 G/DL (6.4-8.3)
[2017-09-18 08:27] LABS: Calcium 9.1 MG/DL (8.5-10.1); Osmolality,Calculated 289.7 MOS/KG (273-304); Thyroid Stimulating Hormone 1.09 uIU/ml (0.358-3.74)
[2017-09-18] MEDS ORDERED: CLOPIDOGREL 75 MG TABLET PO SCH (09:00)
[2017-09-18] MEDS ORDERED: ENOXAPARIN 40 MG/0.4 ML SYRINGE SUBCUT SCH (09:00)
[2017-09-18] MEDS: levETIRAcetam 250 MG TABLET PO SCH ×2 (09:16→20:19)
[2017-09-18] MEDS: POLYETHYLENE GLYCOL POWDER 17 GM PACK PO SCH (09:16)
[2017-09-18] MEDS: SERTRALINE 50 MG TABLET PO SCH (09:17)
[2017-09-18] MEDS: PANTOPRAZOLE 40 MG TABLET PO SCH (09:17)
[2017-09-18] MEDS: BACLOFEN 10 MG TABLET PO SCH ×2 (09:17→20:19)
[2017-09-18] MEDS: ACETAMINOPHEN 500 MG TABLET PO SCH ×3 (09:18→20:19)
[2017-09-18] MEDS: APIXABAN 5 MG TABLET PO SCH (20:24)
[2017-09-18] MEDS: ATORVASTATIN 40 MG TABLET PO SCH (20:24)
[2017-09-19] MEDS: levETIRAcetam 250 MG TABLET PO SCH ×2 (09:42→22:04)
[2017-09-19] MEDS: APIXABAN 5 MG TABLET PO SCH ×2 (09:42→22:03)
[2017-09-19] MEDS: PANTOPRAZOLE 40 MG TABLET PO SCH (09:42)
[2017-09-19] MEDS: SERTRALINE 50 MG TABLET PO SCH (09:43)
[2017-09-19] MEDS: BACLOFEN 10 MG TABLET PO SCH ×2 (09:45→22:04)
[2017-09-19] MEDS: ACETAMINOPHEN 500 MG TABLET PO SCH ×3 (09:45→22:05)
[2017-09-19] MEDS: POLYETHYLENE GLYCOL POWDER 17 GM PACK PO SCH (09:47)
[2017-09-19] MEDS: ATORVASTATIN 40 MG TABLET PO SCH (22:04)
[2017-09-20] MEDS: APIXABAN 5 MG TABLET PO SCH ×2 (08:35→21:01)
[2017-09-20] MEDS: BACLOFEN 10 MG TABLET PO SCH ×2 (08:36→21:02)
[2017-09-20] MEDS: levETIRAcetam 250 MG TABLET PO SCH ×2 (08:36→21:01)
[2017-09-20] MEDS: ACETAMINOPHEN 500 MG TABLET PO SCH ×3 (08:37→21:02)
[2017-09-20] MEDS: POLYETHYLENE GLYCOL POWDER 17 GM PACK PO SCH (08:37)
[2017-09-20] MEDS: PANTOPRAZOLE 40 MG TABLET PO SCH (08:37)
[2017-09-20] MEDS: SERTRALINE 50 MG TABLET PO SCH (08:38)
[2017-09-20] MEDS: ATORVASTATIN 40 MG TABLET PO SCH (21:01)
[2017-09-21] MEDS: BACLOFEN 10 MG TABLET PO SCH ×2 (08:20→20:53)
[2017-09-21] MEDS: POLYETHYLENE GLYCOL POWDER 17 GM PACK PO SCH (08:20)
[2017-09-21] MEDS: levETIRAcetam 250 MG TABLET PO SCH ×2 (08:21→20:51)
[2017-09-21] MEDS: ACETAMINOPHEN 500 MG TABLET PO SCH ×3 (08:22→20:52)
[2017-09-21] MEDS: PANTOPRAZOLE 40 MG TABLET PO SCH (08:23)
[2017-09-21] MEDS: SERTRALINE 50 MG TABLET PO SCH (08:23)
[2017-09-21] MEDS: APIXABAN 5 MG TABLET PO SCH ×2 (08:23→20:53)
[2017-09-21 10:25] LABS: Immature Granulocytes % 0.3 %; Immature Granulocytes Absolute 0.01 #
[2017-09-21 10:30] LABS: Basophils % 0.3 % (0.0-0.8); Eosinophils % 0.8 % (0.00-10.9); Hematocrit 36.5 VOL% (35.7-47.0); Hemoglobin 12.2 GM/DL (12.0-16.0); Lymphocytes # 0.9 10*3/uL (1.4-4.0); Lymphocytes % 23.8 % (21.3-54.2); Mean Corpuscular HGB Conc 33.4 GM/DL (32-36); Mean Corpuscular Hemoglobin 29 PG (27-34); Mean Corpuscular Volume 85.7 FL (87-102); Mean Platelet Volume 10.7 FL (9.6-12.0); Monocytes # 0.2 10*3/uL (0.11-0.8); Monocytes % 5.9 % (1.7-12.7); Neutrophils # 2.7 10*3/uL (1.4-7.4); Neutrophils % 68.9 % (38.7-73.9); Red Blood Count 4.26 MC/CUMM (3.8-5.5); Red Cell Distribution Width 13.8 % (9.3-17.3)
[2017-09-21 10:35] LABS: Platelet Count 144 T/CUMM (130-400); White Blood Count 3.9 T/CUMM (4-12)
[2017-09-21 10:44] LABS: Albumin 3.3 G/DL (3.4-5.0); Bilirubin,Total 0.4 MG/DL (0.2-1.0); Calcium 9.2 MG/DL (8.5-10.1); Osmolality,Calculated 282.3 MOS/KG (273-304); Potassium 3.9 MMOL/L (3.5-5.1); Total Protein 6.7 G/DL (6.4-8.3)
[2017-09-21] MEDS: ATORVASTATIN 40 MG TABLET PO SCH (20:51)
[2017-09-22] MEDS: levETIRAcetam 250 MG TABLET PO SCH (09:31)
[2017-09-22] MEDS: POLYETHYLENE GLYCOL POWDER 17 GM PACK PO SCH (09:31)
[2017-09-22] MEDS: BACLOFEN 10 MG TABLET PO SCH (09:31)
[2017-09-22] MEDS: SERTRALINE 50 MG TABLET PO SCH (09:31)
[2017-09-22] MEDS: APIXABAN 5 MG TABLET PO SCH (09:31)
[2017-09-22] MEDS: ACETAMINOPHEN 500 MG TABLET PO SCH (09:31)
[2017-09-22] MEDS: PANTOPRAZOLE 40 MG TABLET PO SCH (09:32)
[2017-09-22 13:09] VITALS: BP 152/87
== END 2017-09-22 14:41 | DRG 65 ==
LOC: N.ED 17:53 → SUATTDRO 22:13 → N.EDINP 22:13 → N.5E 22:52
PROVIDERS: ADMIT Internal Medicine; ATTEND Internal Medicine